=== PATIENT | female | born 2000 ===

== ENCOUNTER 2023-03-04 13:57 | Emergency (ER) | payer SELFPAY ==
[~2023-03-04] VITALS: Ht 172.7 cm; Wt 69.5 kg
[2023-03-04 14:01] VITALS: BP 110/75; TEMP 98.1
[2023-03-04] MEDS ORDERED: Mag/Al Hydrox/Simeth Susp 30 ML CUP PO ONE (14:15)
[2023-03-04] MEDS ORDERED: ZOFRAN ODT4 MG PO (14:48)
[2023-03-04 15:04] VITALS: PULSE 80
== END 2023-03-04 15:02 | disposition home or self-care (01) ==
LOC: COL.ER 13:57
DX: K29.70 Gastritis, unspecified, without bleeding (principal)

== ENCOUNTER 2023-09-09 00:33 | Emergency (ER) | payer MEDICAID ==
[~2023-09-09] VITALS: Ht 172.7 cm; Wt 71.8 kg
[~2023-09-09 00:33] MED LIST: ZOFRAN ODT4 MG PO
[2023-09-09 00:55] VITALS: TEMP 97.4
[2023-09-09 03:12] VITALS: BP 100/54; PULSE 71
== END 2023-09-09 03:57 | disposition home or self-care (01) ==
LOC: COL.ER 00:33
DX: O20.9 Hemorrhage in early pregnancy, unspecified (principal)

== ENCOUNTER 2023-10-19 16:58 | Emergency (ER) | payer MEDICAID ==
[~2023-10-19] VITALS: Ht 172.7 cm; Wt 67.7 kg
[2023-10-19 17:03] VITALS: TEMP 98.8
[2023-10-19] MEDS ORDERED: NS 1,000 ML IV ONE (17:30)
[2023-10-19] MEDS ORDERED: Ondansetron 4 MG/2 ML VIAL IV ONE (17:30)
[2023-10-19 19:39] VITALS: BP 111/75; PULSE 88
== END 2023-10-19 19:39 | disposition home or self-care (01) ==
LOC: COL.ER 16:58
DX: O21.9 Vomiting of pregnancy, unspecified (principal); Z3A.12 12 weeks gestation of pregnancy
CPT/HCPCS: J2405; J7030